=== PATIENT | female | born 2005 | race African-American/Black ===

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

== ENCOUNTER 2023-02-05 23:24 | Emergency (ER) | payer OTHER ==
[2023-02-06 01:18] LABS: #Basophils 0.1 10x3/uL (0.0-0.2); #Eosinphils 0.1 10x3/uL (0.0-0.5); #Monocytes 0.5 10x3/uL (0.0-1.1); #Neutrophils 2.3 10x3/uL (1.5-8.4); %Basophils 1.1 % (0.0-2.0); %Eosinophils 1.5 % (0.0-6.0); %Lymphocytes 38.9 % (18.0-47.0); %Monocytes 9.9 % (0.0-10.0); %Neutrophils 48.4 % (40.0-75.0); Hemoglobin 12.5 g/dL (12.0-15.5); Mean Corpuscular HGB CONC 31.7 g/dL (32.0-36.0); Mean Corpuscular Hemoglobin 27.8 pg (27.0-33.0); Mean Corpuscular Volume 87.6 fl (81.6-98.3); Mean Platelet Volume 13.1 fl (7.4-10.4); Platelet Count 164 10x3/uL (150-450); Platelet Morphology Comment Appears Adequate; RBC Distribution Width 13.4 % (11.5-14.5); RBC Morph Comment Within Normal Limits; White Blood Cell (WBC) Count 4.8 10x3/uL (3.5-10.5)
[2023-02-06 01:22] LABS: ALT (SGPT) 14 U/L (8-55); AST (SGOT) 17 U/L (5-30); Albumin 3.5 g/dL (3.5-5.0); Alkaline Phosphatase 138 U/L (40-100); Anion Gap 17 mmol/L (10-20); BUN (Urea Nitrogen) 11 mg/dL (8.4-21.0); Bilirubin, Total 0.1 mg/dL (0.2-1.2); Calc. Creatinine Clearance 0 mL/min (70-130); Calcium 8.8 mg/dL (7.8-10.44); Carbon Dioxide 23 mmol/L (22-29); Chloride 102 mmol/L (98-107); Estimated GFR 79; Globulin 3.6 g/dL (2.4-3.5); Potassium 4.1 mmol/L (3.5-5.1); Protein, Total 7.1 g/dL (6.0-8.3); Sodium 138 mmol/L (136-145)
[2023-02-06 01:27] LABS: Glucose 424 mg/dL (70-105)
== END 2023-02-06 01:57 | disposition left against medical advice (07) ==
LOC: CSHERS 23:24
DX: R53.1 Weakness (principal); E10.9 Type 1 diabetes mellitus without complications
CPT/HCPCS: 36415; 80053; 85025; 99284

== ENCOUNTER 2023-05-02 02:55 | Emergency (ER) | payer OTHER ==
[2023-05-02 05:12] LABS: SARS-CoV-2 NAA Rapid Test Not Detected (NotDetected)
== END 2023-05-02 05:49 | disposition home or self-care (01) ==
LOC: CSHERS 02:55
DX: Z20.822 Contact with and (suspected) exposure to COVID-19 (principal); E10.9 Type 1 diabetes mellitus without complications; Z79.4 Long term (current) use of insulin
CPT/HCPCS: 99284

== ENCOUNTER 2023-08-03 22:28 | Emergency (ER) | payer OTHER | END 2023-08-04 01:06 | disposition home or self-care (01) | LOC: CSHERS 22:28 | DX: L02.214 Cutaneous abscess of groin (principal); E10.9 Type 1 diabetes mellitus without complications | CPT/HCPCS: 99282 ==

== ENCOUNTER 2023-08-16 22:15 | Emergency (ER) | payer OTHER ==
[2023-08-16 23:03] LABS: #Monocytes 0.8 10x3/uL (0.0-1.1); #Neutrophils 5.7 10x3/uL (1.5-8.4); %Basophils 0.5 % (0.0-2.0); %Eosinophils 0.4 % (0.0-6.0); %Lymphocytes 20.1 % (18.0-47.0); %Monocytes 9.1 % (0.0-10.0); %Neutrophils 69.8 % (40.0-75.0); Hematocrit 44.1 % (34.9-44.5); Hemoglobin 13.8 g/dL (12.0-15.5); Mean Corpuscular HGB CONC 31.3 g/dL (32.0-36.0); Mean Corpuscular Hemoglobin 27.8 pg (27.0-33.0); Mean Corpuscular Volume 88.7 fl (81.6-98.3); Mean Platelet Volume 13.9 fl (7.4-10.4); Platelet Count 202 10x3/uL (150-450); RBC Distribution Width 13.6 % (11.5-14.5); Red Blood Cell (RBC) Count 4.97 10x6/uL (3.90-5.03); White Blood Cell (WBC) Count 8.2 10x3/uL (3.5-10.5)
[2023-08-16 23:08] LABS: BHCG - Serum Negative (NEGATIVE); Bilirubin Neg (Negative); Blood, Urine 10 (Negative); Clarity Clear (Clear); Glucose, Urine (Dipstick) >=1000 mg/dL (Negative); Ketone, Urine 150 mg/dL (Negative); Leukocyte 100 (Negative); Nitrite Negative (Negative); Pregs Control Background? CLEAR/WHITE (CLR/WHITE); Pregs Control Bar Appear? YES (CONTROL BAR); Protein, Urine (Dipstick) 15 mg/dl (Neg-Trace); Specific Gravity, Urine 1.015 (1.005-1.030); Urobilinogen Normal mg/dL (Less than 2)
[2023-08-16 23:12] LABS: Phosphorus 3.4 mg/dL (2.3-4.7)
[2023-08-16 23:16] LABS: ALT (SGPT) 24 U/L (8-55); AST (SGOT) 29 U/L (5-34); Albumin 3.8 g/dL (3.5-5.0); Alkaline Phosphatase 154 U/L (40-100); Anion Gap 31 mmol/L (10-20); BUN (Urea Nitrogen) 12 mg/dL (7.0-18.7); Bilirubin, Total 0.4 mg/dL (0.2-1.2); Calc. Creatinine Clearance 0 mL/min (70-130); Calcium 9.3 mg/dL (7.8-10.44); Chloride 96 mmol/L (98-107); Estimated GFR 69; Globulin 4.6 g/dL (2.4-3.5); Lipase 13 U/L (8-78); Magnesium 1.8 mg/dL (1.7-2.2); Protein, Total 8.4 g/dL (6.0-8.3); Sodium 131 mmol/L (136-145)
[2023-08-16 23:23] LABS: Carbon Dioxide 9 mmol/L (22-29); Glucose 611 mg/dL (70-105)
[2023-08-16 23:24] LABS: Analyzer IN Cardio CS ER; Base Excess -13.3 mEq/L (-2 - +2); Calcium, Ionized (venous) 1.19 mmol/L (1.16-1.32); Chloride (VBG) 97 mmol/L (98-106); Critical Notified By: Udy, RRT; Hematocrit-VBG 46 % (36.0-47.0); Hemoglobin (Hb) 15.5 g/dL (11.7-15.5); Potassium (VBG) 4.99 mmol/L (3.70-5.30); Puncture Site Other Site; RapidComm Collect By LAB; Sodium 135 mmol/L (133-146); pH (venous) 7.258 (7.32-7.43)
[2023-08-16 23:28] LABS: CAUTI Indications for Culture Pelvic or flank pain; RBC/HPF 0-3 HPF (0-3)
[2023-08-16 23:30] LABS: Bacteria/HPF None Seen HPF (None Seen)
[2023-08-16 23:31] LABS: Urine Culture Reflex No No
[2023-08-16] MEDS ORDERED: Ondansetron PF 4 MG/2 ML Vial ONE (23:56)
[2023-08-17] MEDS ORDERED: INSULIN REGULAR IN 0.9 % NACL 100 UNITS/100 ML BAG ONE (00:10)
== END 2023-08-17 01:49 | disposition short-term general hospital (02) ==
LOC: CSHERS 22:15
DX: E10.10 Type 1 diabetes mellitus with ketoacidosis without coma (principal); R11.2 Nausea with vomiting, unspecified; Z79.4 Long term (current) use of insulin
CPT/HCPCS: 71045; 80053; 81001; 82010; 82805; 83605; 83690; 83735; 84100; 84703; 85025; 87040; 87086; J2405

== ENCOUNTER 2024-02-11 13:09 | Emergency (ER) | payer SELFPAY ==
[2024-02-11 14:30] LABS: Bilirubin Neg (Negative); Blood, Urine 50 (Negative); Clarity Clear (Clear); Glucose, Urine (Dipstick) >=1000 mg/dL (Negative); Ketone, Urine Negative (Negative); Leukocyte 25 (Negative); Nitrite Negative (Negative); Protein, Urine (Dipstick) Negative (Neg-Trace); Specific Gravity, Urine 1.015 (1.005-1.030); Urobilinogen Normal mg/dL (Less than 2)
[2024-02-11 14:31] LABS: Pregnancy Test - Urine (BHCG) Negative (Negative); Pregu Control Background? CLEAR/WHITE (CLR/WHITE); Pregu Control Bar Appear? YES (CONTROL BAR); Specific Gravity 1.015 (1.002-1.036)
[2024-02-11 14:43] LABS: Bacteria/HPF None Seen HPF (None Seen); CAUTI Indications for Culture Fever or rigors; RBC/HPF 0-3 HPF (0-3); Squamous Epithelial 0-3 HPF (0-3); WBC/HPF 0-3 HPF (0-3)
[2024-02-11 14:44] LABS: Urine Culture Reflex No No
[2024-02-11 15:00] LABS: #Basophils 0.03 10x3/uL (0.0-0.2); #Eosinphils 0.04 10x3/uL (0.0-0.5); #Monocytes 0.42 10x3/uL (0.0-1.1); #Neutrophils 1.86 10x3/uL (1.5-8.4); %Basophils 0.7 % (0.0-2.0); %Eosinophils 0.9 % (0.0-6.0); %Lymphocytes 44.7 % (18.0-47.0); %Monocytes 9.9 % (0.0-10.0); %Neutrophils 43.8 % (40.0-75.0); Hemoglobin 11.8 g/dL (12.0-15.5); Mean Corpuscular HGB CONC 32.8 g/dL (32.0-36.0); Mean Corpuscular Hemoglobin 28.2 pg (27.0-33.0); Mean Corpuscular Volume 85.9 fl (81.6-98.3); Platelet Count 163 10x3/uL (150-450); RBC Distribution Width 13.9 % (11.5-14.5); Red Blood Cell (RBC) Count 4.19 10x6/uL (3.90-5.03); White Blood Cell (WBC) Count 4.3 10x3/uL (3.5-10.5)
[2024-02-11 15:06] LABS: Anion Gap 15 mmol/L (10-20); BUN (Urea Nitrogen) 14 mg/dL (7.0-18.7); Calc. Creatinine Clearance 0 mL/min (70-130); Carbon Dioxide 19 mmol/L (22-29); Chloride 103 mmol/L (98-107); Potassium 4.3 mmol/L (3.5-5.1); Sodium 133 mmol/L (136-145)
[2024-02-11 15:07] LABS: ALT (SGPT) 10 U/L (8-55); AST (SGOT) 17 U/L (5-34); Albumin 2.7 g/dL (3.5-5.0); Alkaline Phosphatase 135 U/L (40-100); Bilirubin, Total 0.2 mg/dL (0.2-1.2); Calcium 8.5 mg/dL (7.8-10.44); Estimated GFR 98; Globulin 4.1 g/dL (2.4-3.5); Glucose 320 mg/dL (70-105); Lipase 22 U/L (8-78); Protein, Total 6.8 g/dL (6.0-8.3)
== END 2024-02-11 15:32 | disposition home or self-care (01) ==
LOC: CSHERS 13:09
DX: E10.65 Type 1 diabetes mellitus with hyperglycemia (principal); R10.9 Unspecified abdominal pain; Z79.4 Long term (current) use of insulin
CPT/HCPCS: 80053; 81001; 81025; 83690; 85025; 96360

== ENCOUNTER 2024-06-13 16:15 | Emergency (ER) | payer SELFPAY ==
[2024-06-13 17:39] LABS: #Basophils 0.03 10x3/uL (0.0-0.2); #Eosinphils 0.05 10x3/uL (0.0-0.5); #Monocytes 0.44 10x3/uL (0.0-1.1); #Neutrophils 4.08 10x3/uL (1.5-8.4); %Basophils 0.5 % (0.0-2.0); %Eosinophils 0.8 % (0.0-6.0); %Lymphocytes 26.6 % (18.0-47.0); %Neutrophils 64.9 % (40.0-75.0); Hematocrit 36.8 % (34.9-44.5); Mean Corpuscular HGB CONC 32.6 g/dL (32.0-36.0); Mean Corpuscular Hemoglobin 27.4 pg (27.0-33.0); RBC Distribution Width 13.2 % (11.5-14.5); Red Blood Cell (RBC) Count 4.38 10x6/uL (3.90-5.03); White Blood Cell (WBC) Count 6.3 10x3/uL (3.5-10.5)
[2024-06-13 17:48] LABS: Bilirubin Neg (Negative); Blood, Urine 25 (Negative); Clarity Clear (Clear); Glucose, Urine (Dipstick) >=1000 mg/dL (Negative); Ketone, Urine 50 mg/dL (Negative); Leukocyte 500 (Negative); Nitrite Negative (Negative); Protein, Urine (Dipstick) Negative (Neg-Trace); Urobilinogen Normal mg/dL (Less than 2); pH, Urine 6.5 (5.0-9.0)
[2024-06-13 17:51] LABS: Pregnancy Test - Urine (BHCG) Negative (Negative); Pregu Control Background? CLEAR/WHITE (CLR/WHITE); Pregu Control Bar Appear? YES (CONTROL BAR)
[2024-06-13 17:52] LABS: Mean Platelet Volume 13.8 fL (7.4-10.4); Platelet Count 142 10x3/uL (150-450)
[2024-06-13 18:06] LABS: ALT (SGPT) 10 U/L (8-55); AST (SGOT) 11 U/L (5-34); Albumin 3.1 g/dL (3.5-5.0); Alkaline Phosphatase 69 U/L (40-110); Anion Gap 16 mmol/L (10-20); BUN (Urea Nitrogen) 13 mg/dL (7.0-18.7); Bilirubin, Total 0.4 mg/dL (0.2-1.2); Calc. Creatinine Clearance 0 mL/min (70-130); Calcium 8.7 mg/dL (7.8-10.44); Carbon Dioxide 22 mmol/L (22-29); Chloride 96 mmol/L (98-107); Estimated GFR 71; Globulin 3.4 g/dL (2.4-3.5); Potassium 4.7 mmol/L (3.5-5.1); Protein, Total 6.5 g/dL (6.0-8.3); Sodium 129 mmol/L (136-145)
[2024-06-13 18:06] LABS: CAUTI Indications for Culture Pelvic or flank pain
[2024-06-13 18:08] LABS: Bacteria/HPF 2+ HPF (None Seen); Mucous/LPF 1+ LPF (<2+); Urine Culture Reflex No No
[2024-06-13 18:18] LABS: Glucose 695 mg/dL (70-105)
[2024-06-13 18:41] LABS: Lipase 13 U/L (8-78); Magnesium 1.4 mg/dL (1.6-2.6)
[2024-06-13] MEDS ORDERED: Magnesium 2 GM/50 ML BAG (IN WATER) ONE (18:50)
[2024-06-13 19:12] LABS: Large Platelets SLIGHT (None Seen); Platelet Adequacy Comment Appears Decreased; RBC Morph Comment Within Normal Limits
[2024-06-13] MEDS ORDERED: Insulin Regular, Human 100 UNIT/ML 10 ML VIAL ONE (19:58)
[2024-06-13] MEDS ORDERED: Doxycycline 100 MG CAP PO SCH (21:00)
[2024-06-15 08:24] LABS: Actual Bicarbonate (HCO3v) 25.4 mEq/L (22-28); Analyzer IN Cardio CS ER; Base Excess -0.9 mEq/L (-2 - +2); Calcium, Ionized (venous) 1.13 mmol/L (1.16-1.32); Chloride (VBG) 93 mmol/L (98-106); Hematocrit-VBG 39 % (36.0-47.0); Hemoglobin (Hb) 13.2 g/dL (11.7-15.5); Potassium (VBG) 4.56 mmol/L (3.70-5.30); Puncture Site Other Site; RapidComm Collect By lab; Sodium 129 mmol/L (133-146); pH (venous) 7.333 (7.32-7.43)
== END 2024-06-13 22:45 | disposition home or self-care (01) ==
LOC: CSHERS 16:15
DX: N39.0 Urinary tract infection, site not specified (principal); E11.65 Type 2 diabetes mellitus with hyperglycemia; Z79.4 Long term (current) use of insulin
CPT/HCPCS: 36415; 80053; 81001; 81025; 82010; 82805; 83690; 83735; 85025; 96365; 96366; 96375; 96376; J1815; J3475

== ENCOUNTER 2024-07-08 14:05 | Emergency (ER) | payer OTHER, SELFPAY ==
[2024-07-08 15:12] LABS: Actual Bicarbonate (HCO3v) 18.6 mEq/L (22-28); Analyzer IN Cardio CS ER; Base Excess -7.3 mEq/L (-2 - +2); Calcium, Ionized (venous) 1.14 mmol/L (1.16-1.32); Chloride (VBG) 98 mmol/L (98-106); Critical Notified Whom: KRCLA; Hematocrit-VBG 39 % (36.0-47.0); Hemoglobin (Hb) 13.4 g/dL (11.7-15.5); Potassium (VBG) 4.63 mmol/L (3.70-5.30); Puncture Site Other Site; RapidComm Collect By CBN; Sodium 136 mmol/L (133-146); pH (venous) 7.293 (7.32-7.43)
[2024-07-08 15:25] LABS: #Basophils 0.04 10x3/uL (0.0-0.2); #Eosinophils 0.03 10x3/uL (0.0-0.5); #Monocytes 0.33 10x3/uL (0.0-1.1); #Neutrophils 5.17 10x3/uL (1.5-8.4); %Basophils 0.6 % (0.0-2.0); %Eosinophils 0.4 % (0.0-6.0); %Lymphocytes 19.9 % (18.0-47.0); %Monocytes 4.7 % (0.0-10.0); %Neutrophils 74.1 % (40.0-75.0); Hematocrit 38.5 % (34.9-44.5); Hemoglobin 12.3 g/dL (12.0-15.5); Mean Corpuscular HGB CONC 31.9 g/dL (32.0-36.0); Mean Corpuscular Hemoglobin 27.7 pg (27.0-33.0); Mean Corpuscular Volume 86.7 fL (81.6-98.3); Mean Platelet Volume 13.8 fL (7.4-10.4); Platelet Count 137 10x3/uL (150-450); RBC Distribution Width 13.5 % (11.5-14.5); Red Blood Cell (RBC) Count 4.44 10x6/uL (3.90-5.03)
[2024-07-08 15:35] LABS: Phosphorus 3.5 mg/dL (2.3-4.7)
[2024-07-08 15:39] LABS: ALT (SGPT) 14 U/L (8-55); AST (SGOT) 21 U/L (5-34); Albumin 3.1 g/dL (3.5-5.0); Alkaline Phosphatase 71 U/L (40-110); Anion Gap 22 mmol/L (10-20); BUN (Urea Nitrogen) 12 mg/dL (7.0-18.7); Bilirubin, Total 0.5 mg/dL (0.2-1.2); Calc. Creatinine Clearance 0 mL/min (70-130); Carbon Dioxide 18 mmol/L (22-29); Chloride 99 mmol/L (98-107); Estimated GFR 83; Globulin 3.8 g/dL (2.4-3.5); Magnesium 1.8 mg/dL (1.6-2.6); Potassium 4.7 mmol/L (3.5-5.1); Protein, Total 6.9 g/dL (6.0-8.3); Sodium 134 mmol/L (136-145)
[2024-07-08 15:44] LABS: Glucose 534 mg/dL (70-105)
[2024-07-08] MEDS ORDERED: Insulin Regular, Human 100 UNIT/ML 10 ML VIAL ONE (16:01)
[2024-07-08] MEDS ORDERED: NS 0.9% w/ 20 MEQ KCL 1,000 ML ONE (16:01)
[2024-07-08] MEDS ORDERED: INSULIN REGULAR IN 0.9 % NACL 100 ML ONE (16:01)
[2024-07-08 16:15] LABS: Bilirubin Neg (Negative); Blood, Urine Negative (Negative); Clarity Clear (Clear); Glucose, Urine (Dipstick) >=1000 mg/dL (Negative); Ketone, Urine 150 mg/dL (Negative); Leukocyte 100 (Negative); Nitrite Positive (Negative); Protein, Urine (Dipstick) 15 mg/dl (Neg-Trace); Specific Gravity, Urine 1.015 (1.005-1.030); Urobilinogen Normal mg/dL (Less than 2)
[2024-07-08 16:57] LABS: Bacteria/HPF 2+ HPF (None Seen); CAUTI Indications for Culture Pelvic or flank pain; RBC/HPF 0-3 HPF (0-3)
[2024-07-08 16:58] LABS: Mucous/LPF 1+ LPF (<2+)
[2024-07-08 17:00] LABS: Transitional Epithelial 0-3 HPF (None Seen)
[2024-07-08 17:01] LABS: Urine Culture Reflex No No
[2024-07-08] MEDS ORDERED: Nitrofurantoin Monohyd/M-Cryst 100 MG CAP PO SCH (17:45)
== END 2024-07-08 18:41 | disposition left against medical advice (07) ==
LOC: CSHERS 14:05
DX: N39.0 Urinary tract infection, site not specified (principal); E10.10 Type 1 diabetes mellitus with ketoacidosis without coma; E87.20 Acidosis, unspecified; Z79.4 Long term (current) use of insulin
CPT/HCPCS: 36415; 36416; 80053; 81001; 82010; 82805; 83735; 84100; 85025; 87077; 87086; 87186; 96361; 96374; 96375; J1815; J3480

== ENCOUNTER 2025-05-08 09:12 | Emergency (ER) | payer OTHER ==
[2025-05-08 10:13] LABS: Glucose, Urine (Dipstick) >=1000 mg/dL (Negative); Leukocyte 25 (Negative); Protein, Urine (Dipstick) Negative (Neg-Trace); Specific Gravity, Urine 1.010 (1.005-1.030)
[2025-05-08 10:14] LABS: Pregnancy Test - Urine (BHCG) Negative (Negative); Pregu Control Background? CLEAR/WHITE (CLR/WHITE); Pregu Control Bar Appear? YES (CONTROL BAR)
[2025-05-08 10:35] LABS: Bacteria/HPF Rare-Few HPF (None Seen); CAUTI Indications for Culture Dysuria,urgency,freq; RBC/HPF 0-3 HPF (0-3); Urine Culture Reflex No No; WBC/HPF 0-3 HPF (0-3)
== END 2025-05-08 13:38 | disposition home or self-care (01) ==
LOC: CSHERS 09:12
DX: M79.661 Pain in right lower leg (principal); M79.662 Pain in left lower leg; N76.0 Acute vaginitis; B96.89 Other specified bacterial agents as the cause of diseases classified elsewhere; E10.65 Type 1 diabetes mellitus with hyperglycemia; Z79.4 Long term (current) use of insulin; Z55.6 Problems related to health literacy
CPT/HCPCS: 36416; 81001; 81025; 87480; 87510; 87660; 99283